=== PATIENT | female | born 1965 | race Caucasian/White ===

== ENCOUNTER 2016-07-10 12:52 | Outpatient (CLI) | payer OTHER | END 2016-07-10 12:53 | disposition home or self-care (01) | DX: M51.36 Other intervertebral disc degeneration, lumbar region (principal) ==

== ENCOUNTER 2016-09-03 13:04 | Outpatient (CLI) | payer OTHER | END 2016-09-03 13:05 | disposition other institution (70) | LOC: EMS 13:04 | PROVIDERS: ATTEND Surgery | DX: M54.9 Dorsalgia, unspecified (principal) | CPT/HCPCS: A0425; A0429 ==

== ENCOUNTER 2017-03-17 19:18 | Outpatient (CLI) | payer OTHER | END 2017-03-17 19:19 | disposition critical access hospital (66) | LOC: EMS 19:18 | PROVIDERS: ATTEND Surgery | DX: R11.2 Nausea with vomiting, unspecified (principal); R07.9 Chest pain, unspecified; M54.9 Dorsalgia, unspecified | CPT/HCPCS: A0425; A0429 ==

== ENCOUNTER 2017-03-17 19:52 | Emergency (ER) | payer OTHER ==
[2017-03-17 20:31] LABS: BASOPHILS # (AUTO) 0.1 10^3/uL (0.0-0.1); BASOPHILS % (AUTO) 0.6 %; EOSINOPHILS # (AUTO) 0.2 10^3/uL (0.0-0.7); EOSINOPHILS % (AUTO) 1.1 %; HGB - HEMOGLOBIN 15.7 g/dL (12.0-16.0); LYMPHOCYTES # (AUTO) 2.2 10^3/uL (1.5-3.5); LYMPHOCYTES % (AUTO) 16.1 %; MEAN CORPUSCULAR HEMOGLOBIN 31.7 pg (27.0-31.0); MEAN CORPUSCULAR HGB CONC 33.7 g/dL (32.0-36.0); MEAN CORPUSCULAR VOLUME 94.2 fL (81.0-99.0); MEAN PLATELET VOLUME 7.5 fL (7.9-10.8); MONOCYTES # (AUTO) 0.5 10^3/uL (0.0-1.0); MONOCYTES % (AUTO) 3.3 %; NEUTROPHILS # (AUTO) 11.1 10^3/uL (1.5-6.6); NEUTROPHILS % (AUTO) 78.9 %; PLT - PLATELET COUNT 311 10^3/uL (130-450); RED BLOOD COUNT 4.96 10^6/uL (4.20-5.40); RED CELL DISTRIBUTION WIDTH 13.5 % (12.0-15.0)
[2017-03-17] MEDS ORDERED: SODIUM CHLORIDE 0.9% 1,000 ML IV ONE (20:32)
[2017-03-17] MEDS: SODIUM CHLORIDE 0.9% 1,000 ML IV ONE ×2 (20:34)
[2017-03-17] MEDS ORDERED: ONDANSETRON 4 MG/2 ML VIAL IVP STA (20:38)
[2017-03-17 20:44] LABS: ALBUMIN 5.1 g/dL (3.2-5.5); ALBUMIN/GLOBULIN RATIO 1.7 (1.0-2.2); BILIRUBIN,TOTAL 0.4 mg/dL (0.2-1.0); CALCIUM 9.4 mg/dL (8.5-10.3); CREATININE 0.9 mg/dL (0.4-1.0); TOTAL PROTEIN 8.1 g/dL (6.7-8.2)
[2017-03-17 21:29] LABS: BILIRUBIN,URINE NEGATIVE (NEGATIVE); GLUCOSE, URINE (UA) NEGATIVE (NEGATIVE); KETONES,URINE (UA) NEGATIVE (NEGATIVE); LEUKOCYTE ESTERASE, URINE NEGATIVE (NEGATIVE); NITRITE,URINE NEGATIVE (NEGATIVE); OCCULT BLOOD,URINE SMALL (NEGATIVE); PROTEIN,URINE NEGATIVE (NEGATIVE); UROBILINOGEN,URINE 0.2 (NORMAL) E.U./dL (NORMAL)
[2017-03-17 21:35] LABS: CLARITY,URINE CLEAR (CLEAR)
--- NOTE | 2017-03-17 21:40 | ED Physician Documentation ---
PD HPI NVD - Stated complaint Stated Complaint: NAUSEA - Chief complaint Chief Complaint: Abd Pain - History obtained from History obtained from: Patient - History of Present Illness Timing - onset: Yesterday Timing - details: Gradual onset, Still present Associated symptoms: Abdominal pain Contributing factors: Sick contact. No: Bad food Similar symptoms before: Work up / diagnostics, Treatment Recently seen: Not recently seen - Additonal information Additional information: Patient is a 51 year old female with a history of chronic pain, on mulitple narcotics who is presenting to the emergency department for nausea and vomiting. Patient states that she and her partner had a flu like syndrome about two weeks ago. Patient states that she started to feel a bit better, but during the time she was sick she was unable to keep her pain medications down and she used her medications. Patient states that she has a follow up appointment with her pain doctor in two days but needs something in the meantime. Review of Systems Constitutional: reports: Myalgias, Sweats. denies: Fever Eyes: denies: Decreased vision Ears: reports: Reviewed and negative Nose: reports: Rhinorrhea / runny nose Throat: reports: Reviewed and negative Cardiac: denies: Chest pain / pressure, Palpitations GI: reports: Abdominal Pain, Nausea, Vomiting. denies: Constipation, Diarrhea : reports: Reviewed and negative Skin: denies: Rash, Lesions Musculoskeletal: reports: Reviewed and negative Neurologic: denies: Confused, Altered mental status, Headache, Head injury PD PAST MEDICAL HISTORY - Past Medical History Neuro: Seizure disorder GI: GERD Psych: Anxiety Musculoskeletal: Fibromyalgia, Scoliosis, Chronic back pain - Past Surgical History Past Surgical History: Yes Ortho: Spine surgery /PHARMACEUTICAL SALES: Tubal ligation Derm: Skin grafts - Present Medications Home Medications: Ambulatory Orders Medication Instructions Recorded Confirmed Alprazolam [Xanax] 2 mg PO HS PRN 06/29/12 03/17/17 Methadone 20 mg PO BID 06/29/12 03/17/17 Oxycodone HCl [Oxycontin] 30 mg PO QID 06/29/12 03/17/17 cloNIDine HCl [Clonidine HCl] 0.25 mg PO BID 07/08/13 03/17/17 Promethazine [Phenergan] 25 mg PO Q6H PRN #10 tab 09/01/14 03/17/17 ALPRAZolam [Alprazolam] 0.5 mg PO TID PRN #8 tablet 01/21/15 03/17/17 Meclizine HCl [Antivert] 25 mg PO Q6-8H PRN 11/09/15 03/17/17 Triazolam [Halcion] 0.25 mg PO QPM 11/09/15 03/17/17 Ondansetron Odt [Zofran] 4 mg TL Q6H PRN #14 tablet 03/17/17 - Allergies Allergies/Adverse Reactions: Allergies Allergy/AdvReac Type Severity Reaction Status Date / Time No Known Drug Allergies Allergy Verified 03/17/17 20:02 - Social History Does the pt smoke?: Yes Smoking Status: Current every day smoker Does the pt drink ETOH?: No Does the pt have substance abuse?: Yes - Immunizations Immunizations are current?: Yes - POLST Patient has POLST: No PD ED PE NORMAL - General General: Alert and oriented X 3 - HEENT HEENT: Atraumatic, PERRL - Neck Neck: Supple, no meningeal sign - Respiratory Respiratory: No respiratory distress - Abdomen Abdomen: Soft, Non distended - Derm Derm: Normal color, No rash - Extremities Extremities: No deformity, No edema - Neuro Neuro: Alert and oriented X 3, No motor deficit, No sensory deficit, Normal speech PD ED PE EXPANDED - HEENT HEENT: Dental decay - Cardiac Cardiac: Tachy Results - Vitals Vitals: Vital Signs - 24 hr 03/17/17 03/17/17 19:55 22:04 Temperature 37.2 C 36.3 C L Heart Rate 101 H 108 H Respiratory 12 18 Rate Blood Pressure 174/121 H 179/95 H O2 Saturation 100 97 Oxygen O2 Source Room air - EKG (time done) 2016 Rate: Rate (enter#) (102) Rhythm: Sinus tachycardia [place]: Normal Intervals: Prolonged [facility] Ischemia: ST elevation c/w repol Compare to prior EKG: Unchanged from prior EKG - Labs Labs: Laboratory Tests 03/17/17 03/17/17 03/17/17 20:18 20:18 20:18 WBC 14.0 H RBC 4.96 Hgb 15.7 Hct 46.7 MCV 94.2 MCH 31.7 H MCHC 33.7 RDW 13.5 Plt Count 311 MPV 7.5 L Neut # 11.1 H Lymph # 2.2 [place] # 0.5 Eos # 0.2 Baso # 0.1 Absolute Nucleated RBC 0.00 Nucleated RBC % 0.0 Sodium 140 Potassium 4.0 Chloride 99 L Carbon Dioxide 26 Anion Gap 15.0 H BUN 14 Creatinine 0.9 Estimated GFR (MDRD) 66 L Glucose 104 H Calcium 9.4 Total Bilirubin 0.4 AST 53 H ALT 48 Alkaline Phosphatase 56 Troponin I 0.04 Total Protein 8.1 Albumin 5.1 Globulin 3.0 Albumin/Globulin Ratio 1.7 Lipase 21 L Urine Color Urine Clarity Urine pH Ur Specific [place] Urine Protein Urine Glucose (UA) Urine Ketones Urine Occult Blood Urine Nitrite Urine Bilirubin Urine Urobilinogen Ur Leukocyte Esterase Urine RBC Urine WBC Ur Squamous Epith Cells Urine Bacteria Ur Microscopic Review Urine Culture Comments 03/17/17 21:17 WBC RBC Hgb Hct MCV MCH MCHC RDW Plt Count MPV Neut # Lymph # [place] # Eos # Baso # Absolute Nucleated RBC Nucleated RBC % Sodium Potassium Chloride Carbon Dioxide Anion Gap BUN Creatinine Estimated GFR (MDRD) Glucose Calcium Total Bilirubin AST ALT Alkaline Phosphatase Troponin I Total Protein Albumin Globulin Albumin/Globulin Ratio Lipase Urine Color YELLOW Urine Clarity CLEAR Urine pH 7.0 Ur Specific [place] 1.010 Urine Protein NEGATIVE Urine Glucose (UA) NEGATIVE Urine Ketones NEGATIVE Urine Occult Blood SMALL H Urine Nitrite NEGATIVE Urine Bilirubin NEGATIVE Urine Urobilinogen 0.2 (NORMAL) Ur Leukocyte Esterase NEGATIVE Urine RBC 6-10 H Urine WBC 0-3 Ur Squamous Epith Cells FEW Squamous Urine Bacteria None Seen Ur Microscopic Review INDICATED Urine Culture Comments NOT INDICATED PD MEDICAL DECISION MAKING - ED course Complexity details: reviewed old records, reviewed results, re-evaluated patient , considered differential, d/w patient ED course: Patient was seen and examined at bedside. IV access was gained and labs were drawn. patient was treated with zofran and fluid bolus. patient's tachycardia resolved. patient's juana was reviewed and patient was found to have received over 200 methadone tablets, and over 200 oxycodone in the month of january. Patient was also found putting her fingers down her throat in the room. patient 's laboratory findings showed no significant abnormalities. Patient required no further work up and was stable for discharge with outpatient follow up. Departure - Departure Disposition: 01 Home, Self Care Clinical Impression: Narcotic withdrawal Condition: Stable Instructions: ED Narcotic Abuse Follow-Up: Donny Clark DO [Primary Care Provider] - Within 3 Days Prescriptions: Ondansetron Odt [Zofran] 4 mg TL Q6H PRN #14 tablet PRN Reason: Nausea / Vomiting Comments: Your diagnostics today were within normal limits. Your symptoms are likely secondary to narcotic withdrawal. You have been prescribed over 200 methadone and over 200 oxy in the month of january. You will need to follow up with your pain management doctor this week. You can take your promethazine or zofran as needed for nausea. Discharge Date/Time: 03/17/17 22:12
[2017-03-17 21:57] LABS: BACTERIA,URINE None Seen /HPF (None Seen); SQUAMOUS EPITHELIAL CELL,UR FEW Squamous (<= Few)
[2017-03-17 22:06] VITALS: BP 179/95
== END 2017-03-17 22:12 | disposition home or self-care (01) ==
LOC: EDUNIT# → ED 19:52
DX: F11.23 Opioid dependence with withdrawal (principal); R00.0 Tachycardia, unspecified; K02.9 Dental caries, unspecified; M54.9 Dorsalgia, unspecified; G89.29 Other chronic pain; F17.200 Nicotine dependence, unspecified, uncomplicated
CPT/HCPCS: 36415; 80053; 81001; 81003; 83690; 84484; 85025; 87086; 93005; 96374; 99284

== ENCOUNTER 2017-03-19 09:52 | Outpatient (CLI) | payer OTHER ==
[2017-03-19] MEDS ORDERED: IOPAMIDOL-300 100 ML VIAL IVP ONE (10:49)
[2017-03-19] MEDS ORDERED: IOPAMIDOL-300 100 ML VIAL ONE (11:00)
--- NOTE | 2017-03-19 11:09 | CT Report ---
EXAM: CT ABDOMEN AND PELVIS EXAM DATE: 03/19/2017 10:39 AM. CLINICAL HISTORY: RLQ PAIN, LEUKOCYTOSIS. COMPARISONS: None. TECHNIQUE: Routine helical CT imaging was performed through the abdomen and pelvis. IV contrast: 100M L OF ISOVUE 300. Enteric contrast: No. Reconstructions: Coronal and sagittal. In accordance with CT protocol optimization, one or more of the following dose reduction techniques w ere utilized for this exam: automated exposure control, adjustment of mA and/or KV based on patient s ize, or use of iterative reconstructive technique. FINDINGS: Lung Bases: Unremarkable. Liver: No lobular contour changes or masses. Gallbladder/Bile Ducts: Unremarkable. Spleen: Normal. Pancreas: Normal. Adrenal Glands: Normal. Kidneys: No stone, masses or hydronephrosis. Peritoneal Cavity/Bowel: No free fluid, free air or adenopathy. No masses or acute inflammatory proc ess. The appendix is well visualized and normal. Pelvic Organs: There is a right adnexal simple cyst, 1.3 cm. Punctate calcification, 4-5 mm without a ssociated soft tissue mass, one in each side of the adnexa is normal, of uncertain clinical significa nce. The bladder and visualized pelvic organs are within normal limits. Vasculature: No aneurysms or other significant abnormality. Bones: There is disk implanted with significant imaging artifact in the L5-S1. No bony destructive ab normality visualized. Other: No hernia seen. IMPRESSION: 1. Normal appendix; no renal stone, bowel obstruction or acute inflammatory changes. 2. A simple cyst in the right ovary, 1.3 cm in diameter; if clinical warranted, follow-up with pelvic ultrasound is recommended. Otherwise, negative Abdomen and pelvis CT, no specific findings for patie nt's symptoms. [facility] Referring Provider Line: [phone] SITE ID: [id number]
== END 2017-03-19 09:53 | disposition home or self-care (01) ==
LOC: DI 09:52
PROVIDERS: ATTEND Family Medicine
DX: R10.31 Right lower quadrant pain (principal); N83.291 Other ovarian cyst, right side
CPT/HCPCS: 74177; Q9967

== ENCOUNTER 2018-01-27 19:03 | Outpatient (CLI) | payer OTHER | END 2018-01-27 19:04 | disposition critical access hospital (66) | LOC: EMS 19:03 | PROVIDERS: ATTEND Surgery | DX: R11.2 Nausea with vomiting, unspecified (principal) | CPT/HCPCS: A0425; A0427 ==

== ENCOUNTER 2018-01-27 19:15 | Emergency (ER) | payer OTHER ==
--- NOTE | 2018-01-27 19:56 | ED Physician Documentation ---
PD HPI NVD - Stated complaint Stated Complaint: N/V - Chief complaint Chief Complaint: Back Pain - History obtained from History obtained from: Patient - History of Present Illness Timing - onset: Today (She just got back from [facility] [place] where she was visiting family. While there she took less of her chronic narcotics than normal, She says that she does not like taking meds when she is around her mom, it sounds like her mom is a little judgmental about that. Now with all over body pain, N/V. 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 Derm: Skin grafts - Present Medications Home Medications: Ambulatory Orders Medication Instructions Recorded Confirmed Alprazolam [Xanax] 2 mg PO HS PRN 06/29/12 03/17/17 Methadone 20 mg PO BID 06/29/12 03/17/17 Oxycodone HCl [Oxycontin] 30 mg PO QID 06/29/12 03/17/17 cloNIDine HCl [Clonidine HCl] 0.25 mg PO BID 07/08/13 03/17/17 Promethazine [Phenergan] 25 mg PO Q6H PRN #10 tab 09/01/14 03/17/17 ALPRAZolam [Alprazolam] 0.5 mg PO TID PRN #8 tablet 01/21/15 03/17/17 Meclizine HCl [Antivert] 25 mg PO Q6-8H PRN 11/09/15 03/17/17 Triazolam [Halcion] 0.25 mg PO QPM 11/09/15 03/17/17 Ondansetron Odt [Zofran] 4 mg TL Q6H PRN #14 tablet 03/17/17 ALPRAZolam [Alprazolam] 0.5 mg PO 5XD #5 tablet 01/27/18 - Allergies Allergies/Adverse Reactions: Allergies Allergy/AdvReac Type Severity Reaction Status Date / Time No Known Drug Allergies Allergy Verified 03/17/17 20:02 - Social History Does the pt smoke?: Yes Smoking Status: Current every day smoker Does the pt drink ETOH?: No Does the pt have substance abuse?: Yes - Immunizations Immunizations are current?: Yes - POLST Patient has POLST: No PD ED PE NORMAL - Vitals Vital signs reviewed: Yes - General General: Alert and oriented X 3, Other (restless) - HEENT HEENT: PERRL (dilated pupils) - Cardiac Cardiac: RRR, No murmur - Respiratory Respiratory: No respiratory distress, Clear bilaterally - Abdomen Abdomen: Non tender - Neuro Neuro: Alert and oriented X 3, No motor deficit, No sensory deficit, Normal speech Results - Vitals Vitals: Vital Signs - 24 hr 01/27/18 19:17 Temperature 36.7 C Heart Rate 61 Respiratory 18 Rate Blood Pressure 154/89 H O2 Saturation 100 Oxygen O2 Source Room air PD MEDICAL DECISION MAKING - ED course ED course: 52-year-old woman just returned from [place] where she was visiting her mom and took less of her medications than normal and now has symptoms of withdrawal. She also has lost some of her medications including her alprazolam and left some of her medications in [place]. She was feeling better after IM Ativan and Zofran and a dose of oxycodone here. Discussed with her that I was unable to refill any of her narcotics but she has an appointment with her physician tomorrow. We did give her a prescription for a few alprazolam so she does not go into severe benzodiazepine withdrawal. Departure - Departure Disposition: 01 Home, Self Care Clinical Impression: Narcotic withdrawal Condition: Stable Record reviewed to determine appropriate education?: Yes Instructions: ED Withdrawal Narcotic Prescriptions: ALPRAZolam [Alprazolam] 0.5 mg PO 5XD #5 tablet Comments: Follow-up with your doctor tomorrow as scheduled. Return for new or worsening symptoms. Your blood pressure was elevated today on check into the emergency department. This does not mean that you have hypertension, it is a common phenomenon to come to the emergency department and have elevated blood pressure. I recommend that you see your primary care physician within the week to have it rechecked when you are feeling better.
[2018-01-27] MEDS ORDERED: SODIUM CHLORIDE 0.9% 1,000 ML IV ONE (19:58)
[2018-01-27] MEDS ORDERED: ONDANSETRON 4 MG/2 ML VIAL IVP STA (19:58)
[2018-01-27] MEDS ORDERED: LORazepam 2 MG/ML VIAL IVP STA (19:58)
[2018-01-27] MEDS ORDERED: oxyCODONE 5 MG TABLET PO STA (20:03)
[2018-01-27] MEDS ORDERED: LORazepam 2 MG/ML VIAL IM STA (20:19)
[2018-01-27] MEDS ORDERED: ONDANSETRON ODT 4 MG Prepack 2 TL STA (21:00)
[2018-01-27] MEDS ORDERED: ALPRAZolam 0.25 MG TABLET PO STA (21:03)
[2018-01-27 21:13] VITALS: BP 171/99
== END 2018-01-27 21:11 | disposition home or self-care (01) ==
LOC: EDUNIT# → ED 19:15
DX: F11.23 Opioid dependence with withdrawal (principal); T40.606A Underdosing of unspecified narcotics, initial encounter; Z91.128 Patient's intentional underdosing of medication regimen for other reason; F17.200 Nicotine dependence, unspecified, uncomplicated
CPT/HCPCS: 99283; A9270; J2060

== ENCOUNTER 2018-07-21 18:41 | Outpatient (CLI) | payer OTHER ==
[2018-07-21] MEDS ORDERED: GADOBUTROL 7.5 MMOL/7.5 ML VIAL ONE (18:52)
[2018-07-21] MEDS ORDERED: GADOBUTROL 7.5 MMOL/7.5 ML VIAL IVP ONE (19:56)
--- NOTE | 2018-07-22 14:01 | MRI Report ---
Reason: R THIGH PAIN,LUMBAR FUSION Procedure Date: 07/21/2018 Accession Number: [id number] / [id number] Procedure: MRI - Lumbar Spine W/WO CPT Code: FULL RESULT: EXAM: MRI LUMBAR SPINE WITHOUT AND WITH CONTRAST EXAM DATE: 07/21/2018 07:28 PM. CLINICAL HISTORY: Right thigh pain, lumbar fusion. COMPARISONS: LUMBAR SPINE W/O 07/10/2016 1:14 PM. TECHNIQUE: Multiplanar, multisequence T1-weighted and fluid-sensitive sequences of the lumbar spine from T12 to S1 before and after administration of intravenous contrast. Other: None. IV contrast: 7.5 mL of Gadavist. FINDINGS: Neurologic Structures: The conus terminates at L1-L2. The conus medullaris and cauda equina are unremarkable. Alignment: There is straightening of the lumbar lordosis. Bone Marrow: Five [id number] lumbar vertebral bodies are assumed. There is artifact at the L5-S1 level consistent with the known vertebral body fusion. Hardware is still in situ. Disk Levels/Facets: T12-L1: Unremarkable. L1-L2: There is a broad-based posterior disk bulge with minimal facet joint osteoarthritis causing mild canal and foraminal narrowing. L2-L3: There is a broad-based posterior disk bulge with minimal facet joint osteoarthritis causing mild canal narrowing. There is mild bilateral foraminal narrowing. L3-L4: There is a broad-based posterior disk bulge causing mild canal narrowing. There is mild bilateral foraminal narrowing. L4-L5: There is a broad-based posterior disk bulge. There is ligamentum flavum redundancy and minimal facet joint osteoarthritis. The findings cause mild canal narrowing, with both L5 nerve roots contacted by the disk bulge in the lateral recesses. There is a left lateral disk protrusion posteriorly displacing the left L4 nerve root lateral to the neural foramen. There is mild right foraminal narrowing. L5-S1: Artifact at this level obscures the nerve roots. The canal appears patent. Spinal Canal: No enhancing masses within the spinal canal. No epidural abscess. Musculature: Normal. No edema, abnormal enhancement, or fatty atrophy. Other: The visualized retroperitoneum is unremarkable. IMPRESSION: 1. Prior L5-S1 vertebral body fusion. 2. Mild canal and foraminal narrowing from L1-L2 to L3-L4. 3. L4-L5: Mild canal narrowing secondary to a disk bulge which posteriorly deviates both L5 nerve roots in the lateral recesses. Left lateral disk protrusion posteriorly displaces the left L4 nerve root lateral to the neural foramen. There is mild right foraminal narrowing. 4. L5-S1: The neural foramina are poorly visualized due to artifact. The canal appears patent. Comment: The following findings are so common in adults without low back pain that while we report their presence, they must be interpreted with caution and in the context of the clinical situation. (Reference Angiek et al, Spine 2001) Prevalence of findings in patients without low back pain: Disk degeneration (any evidence): 92% Disk desiccation/T2 signal loss: 83% Disk height loss: 56% Disk bulge: 64% Disk protrusion: 32% Annular tear/high intensity zone: 38% [facility]
== END 2018-07-21 18:42 | disposition home or self-care (01) ==
LOC: DI 18:41
PROVIDERS: ATTEND Family Medicine
DX: M47.816 Spondylosis without myelopathy or radiculopathy, lumbar region (principal); M51.26 Other intervertebral disc displacement, lumbar region; Z98.1 Arthrodesis status; M51.36 Other intervertebral disc degeneration, lumbar region; M48.061 Spinal stenosis, lumbar region without neurogenic claudication
CPT/HCPCS: 72158; A9585

== ENCOUNTER 2018-10-27 10:16 | Outpatient (CLI) | payer OTHER | END 2018-10-27 10:17 | disposition critical access hospital (66) | LOC: EMS 10:16 | PROVIDERS: ATTEND Surgery | DX: R07.9 Chest pain, unspecified (principal); R51 Headache; R06.02 Shortness of breath ==

== ENCOUNTER 2018-10-27 10:28 | Emergency (ER) | payer OTHER ==
[2018-10-27] MEDS ORDERED: ONDANSETRON ODT 4 MG TABLET TL STA (10:34)
[2018-10-27] MEDS ORDERED: LORazepam 1 MG TABLET PO STA (10:37)
--- NOTE | 2018-10-27 10:38 | ED Physician Documentation ---
History of Present Illness - Stated complaint Stated Complaint: WITHDRAWL - Chief complaint Chief Complaint: General - History obtained from History obtained from: Patient, EMS - Additonal information Additional information: The patient is a 53-year-old female with a history of chronic pain syndrome, maintained on methadone 40 mg daily and oxycodone 15 mg as frequently as 6 times daily if needed, who presents via ambulance complaining of withdrawal symptoms. She ran out of methadone 2 days ago. Her new methadone prescription was supposed to be available yesterday, but for some reason it was not available from her pharmacy. She has been vomiting throughout the night. She complains of headache and backache, rated 8 out of 10 in severity. She has a history of similar symptoms in the past, and review of her medical record reveals an emergency department visit 9 months ago with similar symptoms. Review of Systems Constitutional: denies: Fever Nose: denies: Congestion Throat: denies: Sore throat Cardiac: denies: Chest pain / pressure Respiratory: denies: Dyspnea, Cough GI: reports: Nausea, Vomiting. 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 Derm: Skin grafts - Present Medications Home Medications: Ambulatory Orders Medication Instructions Recorded Confirmed Alprazolam [Xanax] 2 mg PO HS PRN 06/29/12 03/17/17 Methadone 20 mg PO BID 06/29/12 03/17/17 Oxycodone HCl [Oxycontin] 30 mg PO QID 06/29/12 03/17/17 cloNIDine HCl [Clonidine HCl] 0.25 mg PO BID 07/08/13 03/17/17 Promethazine [Phenergan] 25 mg PO Q6H PRN #10 tab 09/01/14 03/17/17 ALPRAZolam [Alprazolam] 0.5 mg PO TID PRN #8 tablet 01/21/15 03/17/17 Meclizine HCl [Antivert] 25 mg PO Q6-8H PRN 11/09/15 03/17/17 Triazolam [Halcion] 0.25 mg PO QPM 11/09/15 03/17/17 Ondansetron Odt [Zofran] 4 mg TL Q6H PRN #14 tablet 03/17/17 ALPRAZolam [Alprazolam] 0.5 mg PO 5XD #5 tablet 01/27/18 Promethazine [Phenergan] 25 mg PO Q6H PRN #10 tab 10/27/18 - Allergies Allergies/Adverse Reactions: Allergies Allergy/AdvReac Type Severity Reaction Status Date / Time No Known Drug Allergies Allergy Verified 10/27/18 10:32 - Social History Does the pt smoke?: Yes Smoking Status: Current every day smoker Does the pt drink ETOH?: No Does the pt have substance abuse?: Yes - Immunizations Immunizations are current?: Yes - POLST Patient has POLST: No PD ED PE NORMAL - Vitals Vital signs reviewed: Yes (hypertensive) - General General: Alert and oriented X 3, Well developed/nourished, Other (Appears distressed.) - HEENT HEENT: Atraumatic, Moist mucous membranes - Neck Neck: Supple, no meningeal sign, No adenopathy - Cardiac Cardiac: RRR - Respiratory Respiratory: No respiratory distress, Clear bilaterally - Abdomen Abdomen: Soft, Non tender - Back Back: No CVA TTP - Derm Derm: No rash - Extremities Extremities: No edema, No calf tenderness / cord - Neuro Neuro: Alert and oriented X 3, No motor deficit, Normal speech Results - Vitals Vitals: Vital Signs - 24 hr 10/27/18 12:57 Heart Rate 69 Respiratory 19 Rate Blood Pressure 189/90 H O2 Saturation 99 Oxygen O2 Source Room air - Labs Labs: Laboratory Tests 10/27/18 10/27/18 10:40 10:50 WBC 16.3 H RBC 5.20 Hgb 16.3 H Hct 47.5 H MCV 91.3 MCH 31.3 H MCHC 34.3 RDW 13.3 Plt Count 341 MPV 8.8 Neut # (Auto) 13.7 H Lymph # (Auto) 1.6 [place] # (Auto) 0.7 Eos # (Auto) 0.0 Baso # (Auto) 0.1 Absolute Nucleated RBC 0.00 Nucleated RBC % 0.0 Sodium 143 Potassium 3.5 Chloride 99 L Carbon Dioxide 29 Anion Gap 15.0 H BUN 14 Creatinine 0.9 Estimated GFR (MDRD) 65 L Glucose 148 H Calcium 9.9 Total Bilirubin 0.8 AST 29 ALT 25 Alkaline Phosphatase 49 Total Protein 8.4 H Albumin 4.9 Globulin 3.5 Albumin/Globulin Ratio 1.4 Lipase 30 PD MEDICAL DECISION MAKING - ED course Complexity details: reviewed old records, reviewed results, re-evaluated patient, considered differential, d/w patient, d/w family ED course: The patient's presentation is significant for narcotic withdrawal symptoms including vomiting and abdominal pain, back pain, and headache. She has been on daily methadone regimen for many years, but ran out of methadone 2 days ago. Her symptoms are similar to an episode she had 9 months ago when she had run out of methadone. Treatment in the emergency department included administration of methadone 40 mg orally, Zofran 4 mg sublingually, lorazepam 1 mg orally, Phenergan 25 mg I am for continued nausea, and finally oxycodone 15 mg orally. Her symptoms resolved with the above treatment. She demonstrates ability to drink fluids without recurrent nausea. She is being discharged with a prescription for Phenergan. I discussed with her and her the importance of outpatient follow-up, as well as potentially worrisome signs or symptoms that should prompt reevaluation in the emergency department. Departure - Departure Disposition: 01 Home, Self Care Clinical Impression: Narcotic withdrawal Condition: Stable Instructions: ED Withdrawal Narcotic Follow-Up: Donny Clark DO [Provider Admit Priv/Credential] - Prescriptions: Promethazine [Phenergan] 25 mg PO Q6H PRN #10 tab PRN Reason: Nausea / Vomiting Comments: Follow-up with your primary physician as planned. You can use Phenergan as prescribed if needed for nausea. Return to the emergency department if you develop persistent vomiting, increasing pain, or otherwise worsening symptom. Discharge Date/Time: 10/27/18 12:57
[2018-10-27] MEDS ORDERED: METHADONE 5 MG TABLET PO STA (10:39)
[2018-10-27 10:50] LABS: BASOPHILS # (AUTO) 0.1 10^3/uL (0.0-0.1); BASOPHILS % (AUTO) 0.5 %; EOSINOPHILS % (AUTO) 0.1 %; HGB - HEMOGLOBIN 16.3 g/dL (12.0-16.0); LYMPHOCYTES # (AUTO) 1.6 10^3/uL (1.5-3.5); LYMPHOCYTES % (AUTO) 10.1 %; MEAN CORPUSCULAR HEMOGLOBIN 31.3 pg (27.0-31.0); MEAN CORPUSCULAR HGB CONC 34.3 g/dL (32.0-36.0); MEAN CORPUSCULAR VOLUME 91.3 fL (81.0-99.0); MEAN PLATELET VOLUME 8.8 fL (7.9-10.8); MONOCYTES # (AUTO) 0.7 10^3/uL (0.0-1.0); MONOCYTES % (AUTO) 4.5 %; NEUTROPHILS # (AUTO) 13.7 10^3/uL (1.5-6.6); NEUTROPHILS % (AUTO) 84.2 %; PLT - PLATELET COUNT 341 10^3/uL (130-450); RED CELL DISTRIBUTION WIDTH 13.3 % (12.0-15.0); WHITE BLOOD COUNT 16.3 x10^3/uL (4.8-10.8)
[2018-10-27 11:04] LABS: ALBUMIN 4.9 g/dL (3.2-5.5); ALBUMIN/GLOBULIN RATIO 1.4 (1.0-2.2); BILIRUBIN,TOTAL 0.8 mg/dL (0.2-1.0); CALCIUM 9.9 mg/dL (8.5-10.3); CREATININE 0.9 mg/dL (0.4-1.0); TOTAL PROTEIN 8.4 g/dL (6.7-8.2)
[2018-10-27] MEDS ORDERED: PROMETHAZINE 25 MG/1 ML VIAL IM STA (11:51)
[2018-10-27] MEDS ORDERED: oxyCODONE 5 MG TABLET PO STA (12:27)
[2018-10-27 12:58] VITALS: BP 189/90
== END 2018-10-27 12:57 | disposition home or self-care (01) ==
LOC: EDUNIT# → ED 10:28
DX: F11.23 Opioid dependence with withdrawal (principal); R11.10 Vomiting, unspecified; R51 Headache; M54.9 Dorsalgia, unspecified; T40.2X5A Adverse effect of other opioids, initial encounter; F17.200 Nicotine dependence, unspecified, uncomplicated
CPT/HCPCS: 36415; 80053; 83690; 85025; 96372; 99283; 99284; A9270; J8499; Q0162

== ENCOUNTER 2019-03-26 11:52 | Outpatient (CLI) | payer OTHER ==
--- NOTE | 2019-03-26 13:30 | XRAY Report ---
Reason: ACUTE ON CHRONIC RT HIP PAIN WITH PAIN AT PELVIC FX FROM 2000 Procedure Date: 03/26/2019 Accession Number: [id number] / [id number] Procedure: XR - Hip w/Pelvis 1V RT CPT Code: Final Report FULL RESULT: EXAM: RIGHT HIP RADIOGRAPHY EXAM DATE: 03/26/2019 12:09 PM. CLINICAL HISTORY: ACUTE ON CHRONIC RT HIP PAIN WITH PAIN AT PELVIC FX FROM 2000. COMPARISON: PELVIS 1 VIEW 07/08/2013 8:28 PM ABDOMEN/PELVIS W/O 03/19/2017 10:30 AM. TECHNIQUE: 2 views. FINDINGS: Bones: No acute fractures or bone lesions. Old healed right ischiopubic ramus fracture deformity. Joints: Moderate right hip joint DJD. Mild on the left. There appears to be an L5-S1 disk prosthesis. Soft Tissues: Unremarkable. IMPRESSION: 1. No definite acute osseous abnormality. 2. DJD. If there is clinical concern for radiographically occult fracture or other pathology, MR is recommended for further evaluation. [facility]
== END 2019-03-26 11:53 | disposition home or self-care (01) ==
LOC: DI 11:52
PROVIDERS: ATTEND Family Medicine
DX: M16.11 Unilateral primary osteoarthritis, right hip (principal)

== ENCOUNTER 2019-04-05 01:02 | Outpatient (CLI) | payer OTHER | END 2019-04-05 01:03 | disposition critical access hospital (66) | LOC: EMS 01:02 | PROVIDERS: ATTEND Surgery | DX: R11.2 Nausea with vomiting, unspecified (principal); R06.02 Shortness of breath | CPT/HCPCS: A0425; A0427 ==

== ENCOUNTER 2019-04-05 01:11 | Emergency (ER) | payer OTHER ==
[2019-04-05 01:25] VITALS: BP 201/116
--- NOTE | 2019-04-05 01:35 | ED Physician Documentation ---
History of Present Illness - Stated complaint Stated Complaint: N/V - Chief complaint Chief Complaint: Abd Pain - History obtained from History obtained from: Patient (Patient is a 53-year-old female who States that she ran out of methadone and she will be unable to fill her methadone for another 2 days and reports that she is withdrawing.She tried taking a extra dose of her oxycodoneShe gave herself a dose of antral nasal Narcan and presents via EMS stating that she cannot stop vomiting. She denies any falls or syncope or headaches or fevers or neck pain or abdominal pain.She reports that she cannot stop vomiting and dry heaving.) Review of Systems Constitutional: reports: Reviewed and negative Eyes: reports: Reviewed and negative Ears: reports: Reviewed and negative Nose: reports: Reviewed and negative Throat: reports: Reviewed and negative Cardiac: reports: Reviewed and negative Respiratory: reports: Reviewed and negative GI: reports: Vomiting, Other (methadone withdrawal) : reports: Reviewed and negative Skin: reports: Reviewed and negative Musculoskeletal: reports: Reviewed and negative Neurologic: reports: Reviewed and negative Psychiatric: reports: Reviewed and negative Endocrine: reports: Reviewed and negative Immunocompromised: reports: Reviewed and negative PD PAST MEDICAL HISTORY - Past Medical History Endocrine/Autoimmune: None GI: GERD Psych: Anxiety Musculoskeletal: Fibromyalgia, Scoliosis, Chronic back pain - Past Surgical History Past Surgical History: Yes Ortho: 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 Derm: Skin grafts - Present Medications Home Medications: Ambulatory Orders Medication Instructions Recorded Confirmed Alprazolam [Xanax] 2 mg PO HS PRN 06/29/12 03/17/17 Methadone 20 mg PO BID 06/29/12 03/17/17 Oxycodone HCl [Oxycontin] 30 mg PO QID 06/29/12 03/17/17 cloNIDine HCL [Clonidine HCl] 0.25 mg PO BID 07/08/13 03/17/17 Promethazine [Phenergan] 25 mg PO Q6H PRN #10 tab 09/01/14 03/17/17 ALPRAZolam [Alprazolam] 0.5 mg PO TID PRN #8 tablet 01/21/15 03/17/17 Meclizine HCl [Antivert] 25 mg PO Q6-8H PRN 11/09/15 03/17/17 Triazolam [Halcion] 0.25 mg PO QPM 11/09/15 03/17/17 Ondansetron Odt [Zofran] 4 mg TL Q6H PRN #14 tablet 03/17/17 ALPRAZolam [Alprazolam] 0.5 mg PO 5XD #5 tablet 01/27/18 Promethazine [Phenergan] 25 mg PO Q6H PRN #10 tab 10/27/18 - Allergies Allergies/Adverse Reactions: Allergies Allergy/AdvReac Type Severity Reaction Status Date / Time No Known Drug Allergies Allergy Verified 10/27/18 10:32 - Social History Does the pt smoke?: Yes Smoking Status: Current every day smoker Does the pt drink ETOH?: No Does the pt have substance abuse?: Yes - Immunizations Immunizations are current?: Yes - POLST Patient has POLST: No PD ED PE NORMAL - Vitals Vital signs reviewed: Yes - General General: Alert and oriented X 3, No acute distress - HEENT HEENT: Atraumatic, PERRL, EOMI, Pharynx benign - Neck Neck: Supple, no meningeal sign - Cardiac Cardiac: RRR, No murmur, Strong equal pulses - Respiratory Respiratory: No respiratory distress, Clear bilaterally - Abdomen Abdomen: Normal bowel sounds, Soft, Non tender, Non distended - Derm Derm: Warm and dry - Extremities Extremities: No deformity, No tenderness to palpate, No edema - Neuro Neuro: Alert and oriented X 3, No motor deficit, No sensory deficit, Normal speech - Psych Psych: Normal mood, Normal affect Results - Vitals Vitals: Vital Signs - 24 hr 04/05/19 01:19 Temperature 36.8 C Heart Rate 81 Respiratory 20 Rate Blood Pressure 201/116 H O2 Saturation 98 Oxygen O2 Source Room air PD MEDICAL DECISION MAKING - ED course Complexity details: re-evaluated patient (02:05 patient reevaluated, she states she would like to go home, she denies any HI/SI, denies any aud/vis hallucinations. she has medical decision making capability and capacity. Labs were ordered to look for signs of dehydration and to evaluate kidney function, patient updated and educated on risks of leaving at this time. patient will be discharged home at this time. ) Departure - Departure Disposition: 01 Home, Self Care Clinical Impression: Methadone withdrawal Condition: Fair Instructions: ED Withdrawal Narcotic Follow-Up: YOUR,DOCTOR [Other] - 04/05/19
[2019-04-05] MEDS ORDERED: PROMETHAZINE INJ 25 MG in SODIUM CHLORIDE 0.9% 50 ML IV STA (01:39)
[2019-04-05] MEDS ORDERED: cloNIDine 0.2 MG PATCH TOP SCH (02:00)
[2019-04-05] MEDS ORDERED: SODIUM CHLORIDE 0.9% 1,000 ML IV ONE (02:01)
== END 2019-04-05 02:27 | disposition home or self-care (01) ==
LOC: EDBD → EDUNIT# → ED 01:11
DX: F11.23 Opioid dependence with withdrawal (principal); F17.200 Nicotine dependence, unspecified, uncomplicated
CPT/HCPCS: 96365; 99284; A9270; J7040; 80053; 82550; 83690; 85025

== ENCOUNTER 2019-05-10 07:33 | Outpatient (CLI) | payer OTHER | END 2019-05-10 07:34 | disposition home or self-care (01) | LOC: DI 07:33 | PROVIDERS: ATTEND Family Medicine | DX: Z53.9 Procedure and treatment not carried out, unspecified reason (principal) ==

== ENCOUNTER 2019-06-02 14:06 | Outpatient (CLI) | payer OTHER ==
--- NOTE | 2019-06-03 09:51 | MRI Report ---
Reason: RT HIP PAIN Procedure Date: 06/02/2019 Accession Number: [id number] / [id number] Procedure: MRI - Hip RT W/O CPT Code: Final Report FULL RESULT: EXAM: RIGHT HIP MRI WITHOUT CONTRAST EXAM DATE: 06/02/2019 03:56 PM. CLINICAL HISTORY: Right hip pain. COMPARISON: HIP 1 VIEW RT 03/26/2019 12:03 PM. TECHNIQUE: Multiplanar, multisequence T1-weighted and fluid-sensitive, small klcyn-to-sxvs sequences of the hip and large zfhar-va-mvfq sequences of the pelvis without contrast. Other: None. FINDINGS: Bones: There is a small amount of marrow edema at the anterior acetabulum and also at the posterior lateral femoral head. No fractures. Series 601 image 23 for example. Right Hip: No acetabular retroversion. Femoral head/neck offset is within normal limits. No joint effusion. Some debris seen within it. Series 701 image 16. Global thinning of the articular cartilage with a region of grade IV chondromalacia at the posterior lateral weightbearing surface on both sides of the joint. Series 801 image 21. There is some signal in the anterior lateral labrum, no convincing evidence for tear on these images, however. The ligamentum teres is intact. Other Joints: The visualized lumbar spine, sacroiliac joints, symphysis pubis, and contralateral hip are unremarkable. Musculature: No edema or fatty atrophy. The gluteus medius and minimus tendons are normal. The visualized hamstring tendons are normal. The ischiofemoral space is normal. Pelvic Cavity: The visualized viscera are unremarkable. No lymphadenopathy. No free fluid in the pelvis. Other: The visualized sciatic nerves are unremarkable. No bursitis. The subcutaneous tissues are unremarkable. IMPRESSION: 1. Small amount of marrow edema at the anterior acetabulum and also posterior lateral femoral head. No fractures are noted. 2. Small joint effusion, some debris also seen within it. Global thinning of the articular cartilage with some grade IV chondromalacia at the posterior lateral weightbearing aspect on both sides of the joint. No discrete labral tears on these images; however, there is some increased T2 signal within the labrum. RADIA
== END 2019-06-02 14:07 | disposition home or self-care (01) ==
LOC: DI 14:06
PROVIDERS: ATTEND Family Medicine
DX: M94.251 Chondromalacia, right hip (principal); M25.441 Effusion, right hand; R60.0 Localized edema

== ENCOUNTER 2019-08-17 14:49 | Outpatient (CLI) | payer OTHER ==
--- NOTE | 2019-08-17 16:36 | XRAY Report ---
PROCEDURE: Toe(s) BILAT INDICATIONS: BILAT GREAT TOE PX TECHNIQUE: 3 views of the bilateral great toe(s) acquired. COMPARISON: None. FINDINGS: Bones: No acute fractures or dislocations. There are degenerative changes involving the first metata rsophalangeal joints of the bilateral foot. No suspicious bony lesions. Soft tissues: No suspicious soft tissue densities. IMPRESSION: Bilateral foot without acute fracture or dislocation. 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 Reviewed by: Keven Parrish MD on 08/17/2019 4:34 PM PDT Approved by: Keven Parrish MD on 08/17/2019 4:34 PM PDT Station ID: [id number]
== END 2019-08-17 14:50 | disposition home or self-care (01) ==
LOC: DI 14:49
PROVIDERS: ATTEND Family Medicine
DX: M19.072 Primary osteoarthritis, left ankle and foot (principal); M19.071 Primary osteoarthritis, right ankle and foot
CPT/HCPCS: 73660

== ENCOUNTER 2020-01-26 15:00 | Outpatient (CLI) | payer OTHER ==
--- NOTE | 2020-01-26 16:14 | Ultrasound Report ---
PROCEDURE: Pelvic Limited or F/U INDICATIONS: RT THIGH PAIN, LT FEMORAL HERNIA TECHNIQUE: Real-time transabdominal scanning was performed of the pelvic organs, with image documentation. COMPARISON: MRI of right hip dated 06/02/2019. FINDINGS: Focused ultrasound examination in right groin shows no evidence of hernia. Small lymph nodes are note d in right inguinal region measures up to 3.2 x 0.5 x 1.3 cm in size. IMPRESSION: No evidence of hernia is seen in right groin or right upper thigh. Reviewed by: Abdi Funk MD on 01/26/2020 4:12 PM PST Approved by: Abdi Funk MD on 01/26/2020 4:12 PM PST Station ID: [id number]
== END 2020-01-26 15:01 | disposition home or self-care (01) ==
LOC: DI 15:00
PROVIDERS: ATTEND Family Medicine
DX: K41.90 Unilateral femoral hernia, without obstruction or gangrene, not specified as recurrent (principal)
CPT/HCPCS: 76857

== ENCOUNTER 2020-08-23 14:28 | Outpatient (CLI) | payer OTHER ==
--- NOTE | 2020-08-26 13:44 | Mammography Report ---
BILATERAL DIGITAL SCREENING MAMMOGRAM 3D/2D: 08/23/2020 CLINICAL: Routine screening. Comparison is made to exam dated: 05/03/2015 mammogram - [facility] with [facility]. The tissue of both breasts is heterogeneously dense. This may lower the sensitivity of mammography. No significant masses, calcifications, or other findings are seen in either breast. There has been no significant interval change. IMPRESSION: NEGATIVE There is no mammographic evidence of malignancy. A 1 year screening mammogram is recommended. This exam was interpreted at Station ID: [id number]. NOTE: For mammograms, a report in lay terms will be sent to the patient. Approximately 15% of breast malignancies will not be visualized mammographically. In the management of a palpable breast mass, a negative mammogram must not discourage biopsy of a clinically suspicious lesion. Electronically Signed By: Yan Rangel M.D. ar/penrad:08/23/2020 16:10:07 ACR BI-RADS Category 1: Negative 3341F PARENCHYMAL PATTERN: (D) - The breast(s) demonstrate(s) heterogeneously dense fibroglandular olena haddad. BI-RADS CATEGORY: (1) - 1 RECOMMENDATION: (ANNUAL) - Recommend routine annual screening mammography. [id number] 1 year screening LATERALITY: (B)
== END 2020-08-23 14:29 | disposition home or self-care (01) ==
LOC: DI 14:28
PROVIDERS: ATTEND Family Medicine
DX: Z12.31 Encounter for screening mammogram for malignant neoplasm of breast (principal)

== ENCOUNTER 2020-08-23 14:29 | Outpatient (CLI) | payer OTHER ==
--- NOTE | 2020-08-23 16:37 | DEXA Report ---
PROCEDURE: Dexa Spine and/or Hip INDICATIONS: OSTEOPENIA TECHNIQUE: Dual energy x-ray absorptiometry (DXA) was performed on a [employer]obi[employer] System. Regions measur ed are the AP Spine, femoral neck, and if needed forearm. COMPARISON: None. FINDINGS: Lumbar Spine: Bone Mineral Density 0.992 g/cm/cm,T score -1.6, Left Femoral Neck: Bone Mineral Density 0.792 g/cm/cm, T score -1.7, (T score greater or equal to -1.0: NORMAL) (T score from -1.1 to -2.4: OSTEOPENIA) (T score less than or equal to -2.5 to: OSTEOPOROSIS) Impression: Osteopenia. Patients with diagnosis of osteoporosis or osteopenia should have regular bone mineral density assess ment. For those eligible for Medicare, routine testing is allowed once every 2 years. Testing frequ ency can be increased for patients who have rapidly progressing disease or for those who are receivin g medical therapy to restore bone mass. Reviewed by: Hemant John MD on 08/23/2020 4:36 PM PDT Approved by: Hemant John MD on 08/23/2020 4:36 PM PDT Station ID: [id number]
== END 2020-08-23 14:30 | disposition home or self-care (01) ==
LOC: DI 14:29
PROVIDERS: ATTEND Family Medicine
DX: M85.89 Other specified disorders of bone density and structure, multiple sites (principal); M84.80 Other disorders of continuity of bone, unspecified site; M89.8X9 Other specified disorders of bone, unspecified site

== ENCOUNTER 2020-08-23 14:30 | Outpatient (CLI) | payer OTHER ==
--- NOTE | 2020-08-23 15:24 | XRAY Report ---
PROCEDURE: Mandible Bilat INDICATIONS: DISORDER OF BONE TECHNIQUE: 5 views of the mandible were acquired. COMPARISON: None. FINDINGS: Bones: No fractures or dislocations. No suspicious bony lesions. Dental hardware noted. No definit e focal osseous destruction is seen. Soft tissues: Visualized sinuses appear clear. No suspicious soft tissue densities. IMPRESSION: Overall, unremarkable examination. No definite focal osseous destruction. Reviewed by: Hemant John MD on 08/23/2020 3:23 PM PDT Approved by: Hemant John MD on 08/23/2020 3:23 PM PDT Station ID: [id number]
== END 2020-08-23 14:31 | disposition home or self-care (01) ==
LOC: DI 14:30
PROVIDERS: ATTEND Family Medicine
DX: M89.8X9 Other specified disorders of bone, unspecified site (principal)

== ENCOUNTER 2020-11-15 11:33 | Outpatient (CLI) | payer OTHER ==
--- NOTE | 2020-11-15 15:59 | XRAY Report ---
PROCEDURE: Toe(s) LT INDICATIONS: DISLOCATION OF LEFT LITTLE TOE TECHNIQUE: 3 views of the left toe(s) acquired. COMPARISON: None FINDINGS: Examination is limited by suboptimal positioning. Bones: No fractures or dislocations. No suspicious bony lesions. Soft tissues: No suspicious soft tissue densities. IMPRESSION: Limited examination demonstrating no definite dislocation or acute fracture. No osseous lesion. If sy mptoms and/or clinical suspicion for pathology continue, further assessment with repeat plain films, or advanced imaging (e.g., CT, MRI, or bone scan) is recommended for further assessment. Reviewed by: Luna Longoria MD on 11/15/2020 3:57 PM PDT Approved by: Luna Longoria MD on 11/15/2020 3:57 PM PDT Station ID: [id number]
== END 2020-11-15 11:34 | disposition home or self-care (01) ==
LOC: DI 11:33
PROVIDERS: ATTEND Family Medicine
DX: S93.105A Unspecified dislocation of left toe(s), initial encounter (principal)
CPT/HCPCS: 73660

== ENCOUNTER 2021-06-03 15:50 | Outpatient (CLI) | payer OTHER ==
--- NOTE | 2021-06-04 16:51 | XRAY Report ---
PROCEDURE: Foot 3 View LT INDICATIONS: CHRONIC MTP ARTHRITIS LEFT GREAT TOE TECHNIQUE: 3 views of the foot were acquired. COMPARISON: None FINDINGS: Bones: No fractures or dislocations. No suspicious bony lesions. Moderate first MTP degenerative n arrowing. There is minimal scattered DIP narrowing. Minimal periarticular osteophytes. No erosions. Soft tissues: No tibiotalar joint effusion. Achilles tendon appears normal. IMPRESSION: Arthritic changes most severe at the first MTP joint. Reviewed by: Beatris Leach MD on 06/04/2021 4:50 PM PDT Approved by: Beatris Leach MD on 06/04/2021 4:50 PM PDT Station ID: [id number]
== END 2021-06-03 15:51 | disposition home or self-care (01) ==
LOC: DI 15:50
PROVIDERS: ATTEND Family Medicine
DX: M19.071 Primary osteoarthritis, right ankle and foot (principal)

== ENCOUNTER 2022-01-06 20:13 | Outpatient (CLI) | payer OTHER | END 2022-01-06 20:14 | disposition critical access hospital (66) | LOC: EMS 20:13 | DX: R07.9 Chest pain, unspecified (principal) | CPT/HCPCS: A0425; A0429 ==

== ENCOUNTER 2022-01-06 20:44 | Emergency (ER) | payer OTHER ==
[2022-01-06 21:13] VITALS: BP 147/93
[2022-01-06 21:20] LABS: BASOPHILS # (AUTO) 0.1 10^3/uL (0.0-0.1); BASOPHILS % (AUTO) 1.1 %; EOSINOPHILS # (AUTO) 0.4 10^3/uL (0.0-0.7); EOSINOPHILS % (AUTO) 4.7 %; HCT - HEMATOCRIT 36.9 % (37.0-47.0); HGB - HEMOGLOBIN 11.9 g/dL (12.0-16.0); LYMPHOCYTES # (AUTO) 2.5 10^3/uL (1.5-3.5); LYMPHOCYTES % (AUTO) 32.6 %; MEAN CORPUSCULAR HEMOGLOBIN 30.4 pg (27.0-31.0); MEAN CORPUSCULAR HGB CONC 32.2 g/dL (32.0-36.0); MEAN CORPUSCULAR VOLUME 94.1 fL (81.0-99.0); MEAN PLATELET VOLUME 8.9 fL (7.9-10.8); MONOCYTES # (AUTO) 0.5 10^3/uL (0.0-1.0); MONOCYTES % (AUTO) 6.3 %; NEUTROPHILS # (AUTO) 4.2 10^3/uL (1.5-6.6); NEUTROPHILS % (AUTO) 55.2 %; PLT - PLATELET COUNT 258 10^3/uL (130-450); RED BLOOD COUNT 3.92 10^6/uL (4.20-5.40); WHITE BLOOD COUNT 7.5 x10^3/uL (4.8-10.8)
[2022-01-06 21:34] LABS: ALBUMIN 4.2 g/dL (3.2-5.5); ALBUMIN/GLOBULIN RATIO 1.9 (1.0-2.2); BILIRUBIN,TOTAL 0.2 mg/dL (0.2-1.0); CALCIUM 9.1 mg/dL (8.5-10.3); CREATININE 1.1 mg/dL (0.4-1.0); POTASSIUM 4.1 mmol/L (3.5-5.0); TOTAL PROTEIN 6.4 g/dL (6.7-8.2)
--- NOTE | 2022-01-06 22:09 | XRAY Report ---
PROCEDURE: Chest 1 View X-Ray INDICATIONS: Chest Pain TECHNIQUE: One view of the chest was acquired. COMPARISON: 10/04/2019, 07/08/2013 FINDINGS: Surgical changes and devices: Lower cervical spine fixation hardware is partially seen. Lungs and pleura: No pleural effusions or pneumothorax. Lungs are clear. Mediastinum: The aorta is prominent and tortuous. The cardiac contours are within normal limits. Bones and chest wall: No suspicious bony lesions. Age-appropriate degenerative changes are seen. O verlying soft tissues appear unremarkable. IMPRESSION: No significant abnormality is seen for age, with note made of postoperative and degenerative change. Reviewed by: Scott Peterson MD on 01/06/2022 9:08 PM [facility] Approved by: Scott Peterson MD on 01/06/2022 9:08 PM [facility] Station ID: [id number]
== END 2022-01-06 22:14 | disposition left against medical advice (07) ==
LOC: EDUNIT# → ED 20:44
DX: Z53.21 Procedure and treatment not carried out due to patient leaving prior to being seen by health care provider (principal)
CPT/HCPCS: 36415; 80053; 83690; 84484; 85025; 93005

== ENCOUNTER 2023-02-02 15:22 | Outpatient (CLI) | payer OTHER ==
[2023-02-03 12:09] LABS: ADENOVIRUS F 40/41 Not Detected (Not Detected); ASTROVIRUS Not Detected (Not Detected); C DIFFICILE TOXIN A/B Not Detected (Not Detected); CAMPYLOBACTER Not Detected (Not Detected); CRYPTOSPORIDIUM Not Detected (Not Detected); CYCLOSPORA CAYETANENSIS Not Detected (Not Detected); ENTAMOEBA HISTOLYTICA Not Detected (Not Detected); ENTEROAGGREGATIVE E COLI Not Detected (Not Detected); ENTEROPATHOGENIC E COLI Not Detected (Not Detected); ENTEROTOXIGENIC E COLI Not Detected (Not Detected); GIARDIA LAMBLIA Not Detected (Not Detected); NOROVIRUS GI/GII Not Detected (Not Detected); PLESIOMONAS SHIGELLOIDES Not Detected (Not Detected); ROTAVIRUS A Not Detected (Not Detected); SALMONELLA Not Detected (Not Detected); SAPOVIRUS Not Detected (Not Detected); SHIGA-TOXIN-PRODUCING E COLI Not Detected (Not Detected); SHIGELLA/ENTEROINVASIVE E COLI Not Detected (Not Detected); VIBRIO Not Detected (Not Detected); VIBRIO CHOLERAE Not Detected (Not Detected); YERSINIA ENTEROCOLITICA Not Detected (Not Detected)
== END 2023-02-02 15:23 | disposition home or self-care (01) ==
LOC: LAB.R 15:22
PROVIDERS: ATTEND Internal Medicine Gastroenterology
DX: K21.9 Gastro-esophageal reflux disease without esophagitis (principal); R19.7 Diarrhea, unspecified; K62.5 Hemorrhage of anus and rectum; E66.3 Overweight; Z68.25 Body mass index [BMI] 25.0-25.9, adult
CPT/HCPCS: 87493; 87507

== ENCOUNTER 2023-02-23 10:00 | Outpatient (CLI) | payer OTHER ==
--- NOTE | 2023-02-24 08:13 | Mammography Report ---
BILATERAL DIGITAL SCREENING MAMMOGRAM 3D/2D: 02/23/2023 CLINICAL: Routine screening. Comparison is made to exams dated: 08/23/2020 mammogram and 05/03/2015 mammogram - [facility]. Both breasts are heterogeneously dense, which may obscure small masses (category c / 51-75% glandular tissue). There is a possible developing 0.9 cm equal density asymmetry in the left breast middle depth superio r region seen on the mediolateral oblique view only. No other significant masses, calcifications, or other findings are seen in either breast. IMPRESSION: INCOMPLETE: NEEDS ADDITIONAL IMAGING EVALUATION The possible developing 0.9 cm equal density asymmetry in the left breast is indeterminate. Addition al views with possible ultrasound are recommended. Based on the Tyrer Cuzick model (a risk assessment model) the patients lifetime risk is 10.9% and he r 10 year risk is 4.0%. According to the ACR, ACS, and NCCN guidelines, an annual breast MRI exam edouard ng with mammogram is recommended if the patients lifetime risk is 20% or greater. This exam was interpreted at Station ID: [id number]. NOTE: For mammograms, a report in lay terms will be sent to the patient. Approximately 15% of breast malignancies will not be visualized mammographically. In the management of a palpable breast mass, a negative mammogram must not discourage biopsy of a clinically suspicious lesion. Electronically Signed By: Keven Parrish M.D. aty/:02/23/2023 11:08:35 ACR BI-RADS Category 0: Incomplete 3340F PARENCHYMAL PATTERN: (D) - The breast(s) demonstrate(s) heterogeneously dense fibroglandular parmaribel haddad. BI-RADS CATEGORY: (0) - 0 Mammo and [place] [id number] Immediate follow-up LATERALITY: (L)
== END 2023-02-23 10:01 | disposition home or self-care (01) ==
LOC: DI 10:00
PROVIDERS: ATTEND Internal Medicine
DX: Z12.31 Encounter for screening mammogram for malignant neoplasm of breast (principal); R92.333 Mammographic heterogeneous density, bilateral breasts; R92.8 Other abnormal and inconclusive findings on diagnostic imaging of breast

== ENCOUNTER 2023-03-30 13:19 | Outpatient (CLI) | payer OTHER ==
--- NOTE | 2023-03-31 14:48 | Mammography Report ---
UNILATERAL LEFT DIGITAL DIAGNOSTIC MAMMOGRAM 3D/2D WITH SPOT COMPRESSION: 03/30/2023 CLINICAL: Patient returns today to evaluate an asymmetry in the left breast. Comparison is made to exams dated: 08/23/2020 mammogram, 02/23/2023 mammogram, and 05/03/2015 mammogram - [facility]. The left breast is heterogeneously dense, which may obscure small masses (category c / 51-75% glandul ar tissue). There is a 1.0 cm asymmetry in the left breast posterior depth central to the nipple seen on the medi olateral oblique view only, which triangulates to outer region at 3 o'clock on tomosynthesis views. T his finding corresponds to asymmetry seen on recent screening mammogram. No other significant masses or calcifications are seen in the breast. IMPRESSION: INCOMPLETE: NEEDS ADDITIONAL IMAGING EVALUATION Left breast 1.0 cm asymmetry posterior central region on MLO view. An ultrasound is recommended for f urther evaluation and is scheduled to immediately follow this examination. Based on the Tyrer Cuzick model (a risk assessment model) the patient's lifetime risk is 10.9% and he r 10 year risk is 4.0%. According to the ACR, ACS, and NCCN guidelines, an annual breast MRI exam edouard ng with mammogram is recommended if the patients lifetime risk is 20% or greater. This exam was interpreted at Station ID: [id number]. NOTE: For mammograms, a report in lay terms will be sent to the patient. Approximately 15% of breast malignancies will not be visualized mammographically. In the management of a palpable breast mass, a negative mammogram must not discourage biopsy of a clinically suspicious lesion. Electronically Signed By: Kerri Real M.D., PH.D eb/:03/30/2023 14:44:03 ACR BI-RADS Category 0: Incomplete 3340F PARENCHYMAL PATTERN: (D) - The breast(s) demonstrate(s) heterogeneously dense fibroglandular parenchy ma. BI-RADS CATEGORY: (0) - 0 Ultrasound [id number] Immediate follow-up LATERALITY: (B)
--- NOTE | 2023-03-31 14:48 | Ultrasound Report ---
LIMITED ULTRASOUND OF LEFT BREAST: 03/30/2023 CLINICAL: Patient returns today to evaluate a focal asymmetry in the left breast. Comparison is made to exams dated: 03/30/2023 mammogram, 02/23/2023 mammogram, 08/23/2020 mammogram, mammogram - [facility], and 08/19/2010 mammogram - [facility]. Color flow ultrasound of the left breast 3 o'clock region was performed. Barrera scale images of the r eal-time examination were reviewed. There is a 0.8 cm x 0.6 cm x 0.3 cm oval hypoechoic mass with a circumscribed margin in the left jacquelyn st at 3 o'clock posterior depth 7 cm from the nipple. There is suggestion of reniform shape with a f atty hilum. This finding may correlate with mammography findings. IMPRESSION: PROBABLY BENIGN Left breast 0.8 cm oval circumscribed mass at 3 o'clock. Finding may represent an intramammary lymph node and is probably benign. Recommend follow up left breast diagnostic mammogram and ultrasound in 6 months to demonstrate stability. Findings and recommendations were conveyed to the patient during today's evaluation. This exam was interpreted at Station ID: [id number]. Electronically Signed By: Kerri Real M.D., PH.D eb/:03/30/2023 15:06:48 Ultrasound BI-RADS: 3 Probably benign BI-RADS CATEGORY: (3) - 3 Mammo and US [id number] 6 month follow-up LATERALITY: (B)
== END 2023-03-30 13:20 | disposition home or self-care (01) ==
LOC: DI 13:19
PROVIDERS: ATTEND Internal Medicine
DX: N63.25 Unspecified lump in the left breast, overlapping quadrants (principal); R92.332 Mammographic heterogeneous density, left breast

== ENCOUNTER 2023-10-15 13:07 | Outpatient (CLI) | payer OTHER ==
--- NOTE | 2023-10-18 08:27 | Ultrasound Report ---
LIMITED ULTRASOUND OF LEFT BREAST: 10/15/2023 CLINICAL: Patient returns today to evaluate a focal asymmetry in the left breast. Comparison is made to exams dated: 10/15/2023 mammogram, 03/30/2023 ultrasound, 03/30/2023 mammogram, 1 04/26/2022 mammogram, and 08/23/2020 mammogram - [facility]. Color flow and real-time ultrasound of the left breast 3 o'clock region were performed. Barrera scale images of the real-time examination were reviewed. There is a 0.8 cm x 0.6 cm x 0.3 cm oval mass with a circumscribed margin in the left breast at 3 o'c lock posterior depth 7 cm from the nipple. This abnormality is not significantly changed and correla beltran with mammography findings. IMPRESSION: PROBABLY BENIGN The 0.8 cm x 0.6 cm x 0.3 cm oval mass in the left breast resembles a lymph node and is probably francine gn. A follow-up mammogram and an ultrasound in 6 months is recommended to demonstrate stability. This exam was interpreted at Station ID: [id number]. Electronically Signed By: Yan taylor/donya:10/15/2023 21:38:06 Ultrasound BI-RADS: 3 Probably benign BI-RADS CATEGORY: (3) - 3 Mammo and [place] [id number] 6 month follow-up LATERALITY: (B)
--- NOTE | 2023-10-18 08:27 | Mammography Report ---
UNILATERAL LEFT DIGITAL DIAGNOSTIC MAMMOGRAM 3D/2D: 10/15/2023 CLINICAL: Patient returns for a 6 month follow up of the left breast. Comparison is made to exams dated: 03/30/2023 mammogram, 02/23/2023 mammogram, 08/23/2020 mammogram, a nd 03/30/2023 ultrasound - [facility]. The left breast is heterogeneously dense, which may obscure small masses (category c / 51-75% glandul ar tissue). There is a 1 cm asymmetry in the left breast posterior depth superior region seen on the mediolateral oblique view only. This is not significantly changed. No other significant masses or calcifications are seen in the breast. IMPRESSION: INCOMPLETE: NEEDS ADDITIONAL IMAGING EVALUATION The 1 cm asymmetry in the left breast is indeterminate. Targeted ultrasound is recommended for furth er evaluation, which will be performed immediately following this exam. Based on the Tyrer Cuzick model (a risk assessment model) the patient's lifetime risk is 10.9% and he r 10 year risk is 4.0%. According to the ACR, ACS, and NCCN guidelines, an annual breast MRI exam edouard ng with mammogram is recommended if the patient's lifetime risk is 20% or greater. This exam was interpreted at Station ID: [id number]. NOTE: For mammograms, a report in lay terms will be sent to the patient. Approximately 15% of breast malignancies will not be visualized mammographically. In the management of a palpable breast mass, a negative mammogram must not discourage biopsy of a clinically suspicious lesion. Electronically Signed By: Yan taylor/donya:10/15/2023 21:36:23 ACR BI-RADS Category 0: Incomplete 3340F PARENCHYMAL PATTERN: (D) - The breast(s) demonstrate(s) heterogeneously dense fibroglandular parenchy ma. BI-RADS CATEGORY: (0) - 0 Ultrasound [id number] Immediate follow-up LATERALITY: (L)
== END 2023-10-15 13:08 | disposition home or self-care (01) ==
LOC: DI 13:07
PROVIDERS: ATTEND Internal Medicine
DX: N63.25 Unspecified lump in the left breast, overlapping quadrants (principal); R92.332 Mammographic heterogeneous density, left breast